=== PATIENT | female | born 1955 | race Two or more races ===

== ENCOUNTER 2022-11-28 18:47 | Inpatient (IN) | payer MEDICARE, OTHER ==
[~2022-11-28] VITALS: Ht 157.5 cm; Wt 61.2 kg
--- NOTE | 2022-11-28 19:36 | NUR ---
DIETETIC TECHNICIAN AT PT'S BEDSIDE
--- NOTE | 2022-11-28 19:56 | NUR ---
COVID ANTIGEN SWAB COLLECTED AND SENT TO LAB
--- NOTE | 2022-11-28 19:56 | NUR ---
URINE COLLECTED AND SENT TO LAB
[2022-11-28 20:06] LABS: BASOPHILS % (AUTO) 0.2 % (0.0-2.0); HEMATOCRIT 39 % (33-45); HEMOGLOBIN 10.8 g/dL (11.5-14.8); LYMPHOCYTES % (AUTO) 10.3 % (20.0-44.0); MEAN CORPUSCULAR HGB CONC 28 g/dl (31.0-36.0); MEAN CORPUSCULAR VOLUME 83 fL (82-100); MONOCYTES # (AUTO) 0.5 K/uL (0.1-1.30); MONOCYTES % (AUTO) 5.2 % (2.0-12.0); NEUTROPHILS # (AUTO) 8.1 K/uL (1.8-8.9); NEUTROPHILS % (AUTO) 84.3 % (43.0-81.0); PLATELET COUNT (AUTO) 609 K/uL (150-450); RED BLOOD CELL COUNT(AUTO) 4.73 MIL/uL (4.0-5.2); WHITE BLOOD COUNT (AUTO) 9.7 K/uL (4.3-11.0)
[2022-11-28 20:12] LABS: ALANINE AMINOTRANSFERASE 6 U/L (12-78); ALBUMIN 2.1 g/dL (3.4-5.0); ALKALINE PHOSPHATASE 101 U/L (46-116); ASPARTATE AMINOTRANSFERASE 14 U/L (15-37); BILIRUBIN,DIRECT 0.2 mg/dL (0.0-0.2); BILIRUBIN,TOTAL 0.6 mg/dL (0.2-1.0); CALCIUM, SERUM 9.1 mg/dL (8.5-10.1); CARBON DIOXIDE 16 mmol/L (21-32); CHLORIDE 98 mmol/L (98-107); GLUCOSE 76 mg/dL (74-106); POTASSIUM 4.7 mmol/L (3.5-5.1); SODIUM SERUM 131 mmol/L (136-145); TOTAL PROTEIN, SERUM 7.6 g/dL (6.4-8.2); UREA NITROGEN, BLOOD 27 mg/dL (7-18)
[2022-11-28 20:20] LABS: ACETAMINOPHEN < 10 ug/ml (10-30); ALCOHOL, BLOOD < 3 mg/dL (0-0)
[2022-11-28 21:31] LABS: BILIRUBIN,URINE 2+ (NEGATIVE); COLOR,URINE YELLOW (YELLOW); LEUKOCYTE ESTERASE ,URINE TRACE (NEGATIVE); NITRITE, URINE NEGATIVE (NEGATIVE); PH,URINE 5.5 (5.0-8.0); PROTEIN,URINE NEGATIVE (NEGATIVE); UGLUCOSE NEGATIVE (NEGATIVE); UROBILINOGEN,URINE 0.2 EU/dL (0.2)
[2022-11-28 21:35] LABS: RBC,URINE 0-2 /HPF (0-2)
[2022-11-28 21:36] LABS: BACTERIA,URINE 2+ /HPF (None Seen)
[2022-11-28 21:54] LABS: LYMPHOCYTES % (MANUAL) 10 % (16-48); MONOCYTES % (MANUAL) 4 % (0-11.0); NEUTROPHILS % (MANUAL) 86 (42-76)
--- NOTE | 2022-11-28 23:25 | NUR ---
DIA JON AT PT'S BEDSIDE FOR EVAL
[2022-11-28] MEDS ORDERED: OLAN10TA3 PO (23:35)
--- NOTE | 2022-11-28 23:35 | NUR ---
REPORT GIVEN TO ANA LAURA CONROY RN FOR [facility].
--- NOTE | 2022-11-28 23:41 | NUR ---
PT TRANSFERRED TO [facility] VIA HOSPITAL PROTOCOL. VSS.
[2022-11-29] MEDS ORDERED: DOCU100C36 PO (00:01)
[2022-11-29] MEDS ORDERED: MULT-754 PO (00:02)
[2022-11-29] MEDS ORDERED: FENT1PAT5 TP (00:04)
[2022-11-29] MEDS ORDERED: NA P133E RC (00:09)
[2022-11-29] MEDS ORDERED: MORP15TA SL (00:16)
[2022-11-29] MEDS ORDERED: ACETAMINOPHEN 325 MG TABLET PO PRN (00:30)
[2022-11-29] MEDS ORDERED: MAG HYDROX/AL HYDROX/SIMETH 30 ML UDC PO PRN (00:30)
[2022-11-29] MEDS ORDERED: MAGNESIUM HYDROXIDE 30 ML UDC PO PRN (00:30)
[2022-11-29] MEDS ORDERED: LORAZEPAM 0.5 MG TABLET PO PRN (00:30)
[2022-11-29] MEDS ORDERED: TEMAZEPAM 7.5 MG CAPSULE PO PRN (00:30)
[2022-11-29] MEDS ORDERED: MORPHINE SULFATE SL (00:40)
[2022-11-29] MEDS ORDERED: NA PHOS,M-B/NA PHOS,DI-BA 1 EA ENEMA RC PRN (01:00)
[2022-11-29] MEDS ORDERED: BLOOD SUGAR DIAGNOSTIC 1 EACH STRIP IN ONE (01:00)
[2022-11-29 02:00] VITALS: BP 115/68
[2022-11-29] MEDS ORDERED: Z GUARD REMEDY 4 OZ OINT TP PRN ×2 (02:00→06:30)
--- NOTE | 2022-11-29 02:03 | NUR ---
RN NOTES : ADMISSION NOTES: ADMITTED THIS 67Y/O FEMALE PATIENT ADMIT FROM [facility] ED/INTIALLY FROM [facility]. ADMITTED TO 5150 HOLD PER HOLD DTO, GD , PT. PT. WAS AGITATED,REFUSING ARE, YELLING, REFUSING FOOD, MEDS, CARE , FAILURE TO THRIVE, UPON FACE TO FACE ASSESSMENT PATIENT IS A&O1X2 ,EASILY AGITATED ,DISORGNIZED, DELUSIONS, DISHELVED,POOR HYGINE,MALORDURS,YELLING,NEEDY DEMENDING UNCOOPERTIVE, NONREDIRECTABLE , LOUD HYPERVERBAL POOR DECISION MAKING,DENIES SI /HI AT THIS TIME, PT. IS POOR HISTORIAN, POOR INSIGHT ,POOR JUDGEMENT , BOTH MD AWARE AND NOTIFIED OF THE ADMISSION, BELONGINGS CONTRABAND WERE DONE , PT. REFUSED SIGNS ADMISSION CONSENT PAPER DUE TO CONFUSED, AND REFUSED BLOOD SUGAR CHECK , ENCOURAGED , PT. RIGHTS DISCUSS BY REFINERY OPERATOR , PROVIDE THE PT. WITH HANDBOOK, AND MEDICATIONS GUIDE, ENVIRONMENTAL SAFETY CHECK DONE, ENCOURAGED PT. VERBALIZED ANY FEELING CONCERN TO STAFF, ORIENT TO UNIT POLICY, NO ACUTE DISTRESS NOTED,VITAL SIGNS WNL ,DENIES ANY PAIN AT THIS TIME,WILL CONTINUE TO MONITOR FOR Q15 SAFETY AND BEHAVIOR.
[2022-11-29] MEDS: CEPHALEXIN MONOHYDRATE 500 MG CAPSULE PO SCH ×3 (06:05→17:42)
--- NOTE | 2022-11-29 06:36 | NUR ---
RN NOTES: REFUSED HYGINE CARE PT. BEHAVIOR UNCOOPERTIVE AGGRESSIVE YELLING SCREAMING, PT. ALLOWED ONLY PERICARE , BUT REFUSED SHOWER BED BATH ORAL HYGINE , ENCOURAGEDX3 RISKS AND BENEFITS EXPLINED ,BUT PT. STRONGLY REFUSED PT. NOTED WITH VERY POOR HYGINE, MALOROURS, GENERALIZED ALL BODY RASHES, REDNESS SKIN DISCOLORATIONS, SKIN DRYNESS , EASILY OOZING FRAGILE SKIN.ENCOURAGED AND OFFERED REPOSTIONS TURNING EVERY 2 HOURS ,BUT PT. REFUSING AND STARTRED YELLING SCREAMING, AGGRESSIVE ARGUMENTATIVE WITH STAFF.
--- NOTE | 2022-11-29 07:22 | NUR ---
RN NOTES: CALLED NOTIFED KAUSHIK MCDOWELL SISTER # [phone], REGARDING ABOUT PT. ADMITTED TO [facility]
[2022-11-29 08:00] VITALS: BP 109/73
[2022-11-29] MEDS: ENSURE ENLIVE CHOC 237 ML CAN PO SCH ×2 (08:26→17:00)
[2022-11-29] MEDS: MULTIVITAMINS,THERAGRAN 1 UDTAB TABLET PO SCH (09:00)
[2022-11-29] MEDS: DOCUSATE SODIUM 100 MG CAPSULE PO SCH (09:00)
[2022-11-29] MEDS: Z GUARD REMEDY 4 OZ OINT TP SCH (12:00)
--- NOTE | 2022-11-29 13:49 | NUR ---
GPS/RN PT REFUSED TO BE REPOSITIONED THOROUGH THE SHIFT. RESISTIVE TO CARE, REFUSING TO EAT AND SELECTIVE WITH MEDS
[2022-11-29] MEDS: OLANZAPINE ZYDIS 5 MG TAB.RAPDIS PO SCH ×2 (13:57→21:02)
[2022-11-29 16:00] VITALS: BP 118/76
--- NOTE | 2022-11-29 20:44 | NUR ---
RN NOTES:PATIENT RESTING IN HER ROOM . NO APPARENT DISTRESS NOTED, PATIENT UNCOOPERATIVE, YELLING, SCREAMING ,CONFUSED FORGETFUL EASILY AGITATED/IRRITABLE, PARANOID ,GUARDER NEEDY ,DEMENDING DISORGNIZED,GUARDED, NEEDS FREQUENTLY REDIRECTIONS, MED COMPLIANT WITH ENCOURAGEMENT ,DENIES SI/HI/AVH AT THIS TIME. SAFETY PRECAUTIONS MAINTAINED. WILL CONTINUE TO MONITOR Q15MIN ROUNDS FOR SAFETY AND BEHAVIOR.
[2022-11-29 21:05] VITALS: BP 112/66
[2022-11-29] MEDS: MORPHINE SULFATE IR 15 MG TABLET PO PRN (22:12)
--- NOTE | 2022-11-29 22:15 | NUR ---
RN NOTES: PT. C/O GENERALIZED BODY PAIN 8/10 ,PRN PO MORPHINE SULFATE 7.5 MG GIVEN PER PT. REQUEST,WILL CONTINUE TO MONITOR. FOR PARTIAL DOSE WITNESS BY ANOTHER NURSE SOM RN .
[2022-11-30] MEDS: CEPHALEXIN MONOHYDRATE 500 MG CAPSULE PO SCH ×4 (00:20→18:08)
--- NOTE | 2022-11-30 06:40 | NUR ---
RN NOTES: REFUSED HYGINE CARE, ORAL CARE, REFUESD REPOSITION PT. BEHAVIOR UNCOOPERTIVE AGGRESSIVE YELLING SCREAMING, PT. ALLOWED ONLY PERICARE , BUT REFUSED SHOWER, BED BATH ORAL HYGINE,REDEPOSITING, THROUGH THE SHIFT , ENCOURAGEDX3 RISKS AND BENEFITS EXPLINED ,BUT PT. STRONGLY REFUSED PT. NOTED WITH VERY POOR HYGINE, MALOROURS, GENERALIZED ALL BODY RASHES, REDNESS SKIN DISCOLORATIONS, SKIN DRYNESS , EASILY OOZING FRAGILE SKIN.ENCOURAGED AND OFFERED REPOSTIONS TURNING EVERY 2 HOURS ,BUT PT. REFUSING AND STARTRED YELLING SCREAMING, AGGRESSIVE ARGUMENTATIVE WITH STAFF , IDONT WANT CLEAN OR REPOSITION .
[2022-11-30 07:42] LABS: CREATININE 1.3 mg/dL (0.6-1.3)
[2022-11-30 08:00] VITALS: BP_SYST 107; BP_SYST 142; BP_DIAS 54; BP_DIAS 71
[2022-11-30] MEDS: ENSURE ENLIVE CHOC 237 ML CAN PO SCH ×2 (08:00→17:00)
[2022-11-30 08:02] LABS: CALCIUM, SERUM 8.8 mg/dL (8.5-10.1); CREATININE 1.3 mg/dL (0.6-1.3); POTASSIUM 4.4 mmol/L (3.5-5.1)
[2022-11-30 08:35] LABS: BASOPHILS % (AUTO) 0.2 % (0.0-2.0); EOSINOPHILS % (AUTO) 0.1 % (0.0-6.0); HEMATOCRIT 28 % (33-45); HEMOGLOBIN 8.7 g/dL (11.5-14.8); LYMPHOCYTES # (AUTO) 1.1 K/uL (0.8-4.8); LYMPHOCYTES % (AUTO) 16.9 % (20.0-44.0); MEAN CORPUSCULAR HGB CONC 31 g/dl (31.0-36.0); MEAN CORPUSCULAR VOLUME 72 fL (82-100); MONOCYTES # (AUTO) 0.5 K/uL (0.1-1.30); MONOCYTES % (AUTO) 6.9 % (2.0-12.0); NEUTROPHILS # (AUTO) 5.2 K/uL (1.8-8.9); NEUTROPHILS % (AUTO) 75.9 % (43.0-81.0); PLATELET COUNT (AUTO) 451 K/uL (150-450); RED BLOOD CELL COUNT(AUTO) 3.87 MIL/uL (4.0-5.2); WHITE BLOOD COUNT (AUTO) 6.8 K/uL (4.3-11.0)
[2022-11-30] MEDS: OLANZAPINE ZYDIS 5 MG TAB.RAPDIS PO SCH ×3 (08:47→21:39)
[2022-11-30] MEDS: DOCUSATE SODIUM 100 MG CAPSULE PO SCH (08:47)
[2022-11-30] MEDS: MULTIVITAMINS,THERAGRAN 1 UDTAB TABLET PO SCH (08:47)
[2022-11-30] MEDS: Z GUARD REMEDY 4 OZ OINT TP SCH (08:47)
[2022-11-30 09:09] LABS: LYMPHOCYTES % (MANUAL) 17 % (16-48); MONOCYTES % (MANUAL) 8 % (0-11.0); NEUTROPHILS % (MANUAL) 75 (42-76)
[2022-11-30] MEDS: FENTANYL PATCH (100 MCG/HR) 100 MCG/HR PATCH.TD72 TD SCH (15:14)
--- NOTE | 2022-11-30 18:52 | NUR ---
NURSE NOTE: PT RECEIVED SHOWER AND ORAL CARE DURING SHIFT. PT REFUSED TO BE REPOSITIONED. ENCOURAGED MULTIPLE TIMES, BUT PT STATED THAT SHE IS IN PAIN WHEN REPOSITIONED. PT ALSO REFUSED TO EAT FOOD. ONLY TOOK ALMOND MILK THROUGHOUT SHIFT. WILL ENDORSE TO PM SHIFT.
[2022-11-30 20:00] VITALS: BP 115/68
[2022-12-01] MEDS: CEPHALEXIN MONOHYDRATE 500 MG CAPSULE PO SCH ×4 (00:03→17:38)
[2022-12-01 08:00] VITALS: BP 100/62
[2022-12-01] MEDS: ENSURE ENLIVE CHOC 237 ML CAN PO SCH ×2 (08:00→17:00)
[2022-12-01] MEDS: DOCUSATE SODIUM 100 MG CAPSULE PO SCH (08:27)
[2022-12-01] MEDS: OLANZAPINE ZYDIS 5 MG TAB.RAPDIS PO SCH ×3 (08:27→21:03)
[2022-12-01] MEDS: Z GUARD REMEDY 4 OZ OINT TP SCH (08:28)
[2022-12-01] MEDS: MULTIVITAMINS,THERAGRAN 1 UDTAB TABLET PO SCH (08:28)
[2022-12-01] MEDS: MORPHINE SULFATE IR 15 MG TABLET PO PRN ×2 (09:38→09:48)
--- NOTE | 2022-12-01 09:50 | NUR ---
NURSE NOTE: PT REQUESTED MORPHINE FOR PAIN. MORPHINE TABLET OFFERED TO PT PER ORDER. PT REFUSED. SAID THAT SHE DOES NOT TAKE A PILL, SHE TAKES MORPHINE LIQUID. ASKED PHARMACY IF WE HAD MORPHINE LIQUID FORM AND WAS TOLD THAT IT IS NOT AVAILABLE. INFORMED PT THAT LIQUID MORPHINE WAS NOT AVAILABLE AND ASKED IF SHE WANTED TO TAB. SHE REFUSED ONCE MORE. MORPHINE WASTED WITH PRIMO MARIO. ALSO OFFERED TO REPOSITION PT, BUT SHE REFUSED, STATING THAT SHE DOESN'T NEED TO BE REPOSITIONED, ONLY MOVE THE BED UP AND DOWN. WILL CONT TO MONITOR.
--- NOTE | 2022-12-01 11:08 | NUR ---
LESTER Initial Discharge Plan: Patient from [facility] [place] [address]; phone: ([phone]). LESTER spoke with Ilana Rojas ([phone]) to see if pt is welcomed back, he will confirm and let this commercial insurance underwriter know. LESTER will contact pt's sister Queta ([phone]) to gather further collateral. LESTER will work with the MD, family, and pt to help coordinate appropriate discharge.
--- NOTE | 2022-12-01 11:08 | NUR ---
LESTER Clinical Note: Pt placed on a 5150 hold for danger to others and GD. Pt was aggressive at her facility. Patient from [place] [address]; ). LESTER spoke with Ilana Rojas ([phone]) to see if pt is welcomed back, he will confirm and let this resume writer know. LESTER will contact pt's sister Queta ([phone]) to gather further collateral.
--- NOTE | 2022-12-01 11:08 | NUR ---
Treatment Plan: Pt refused to sign treatment plan and was suspicious of this signwriter.
--- NOTE | 2022-12-01 12:22 | NUR ---
Facility Contact: SW spoke with Ilana webb ([phone]) who stated that they would want to re-route the pt to a different facility.
--- NOTE | 2022-12-01 14:16 | NUR ---
LESTER Family Contact: LESTER contacted pt's sister Queta ([phone]) and left a detailed voicemail.
[2022-12-01 16:00] VITALS: BP 118/60
--- NOTE | 2022-12-01 20:17 | NUR ---
RN note: Patient refused to be turned and repositioned in bed.Patient prefers to be in prone position .No s/s of acute distress noted. Addendum: 12/02/22 at 0318 by SHELDON HORNER RN Patient prefers to be on supine position .Refused to be turned and repositioned.
[2022-12-01 21:17] VITALS: BP 103/57
[2022-12-02] MEDS: CEPHALEXIN MONOHYDRATE 500 MG CAPSULE PO SCH ×4 (00:23→23:20)
[2022-12-02 08:00] VITALS: BP 110/74
[2022-12-02] MEDS: ENSURE ENLIVE CHOC 237 ML CAN PO SCH ×2 (08:52→17:00)
[2022-12-02] MEDS: OLANZAPINE ZYDIS 5 MG TAB.RAPDIS PO SCH ×4 (09:00→20:08)
[2022-12-02] MEDS: MULTIVITAMINS,THERAGRAN 1 UDTAB TABLET PO SCH ×2 (09:00→09:34)
[2022-12-02] MEDS: DOCUSATE SODIUM 100 MG CAPSULE PO SCH ×2 (09:00→09:34)
[2022-12-02] MEDS: Z GUARD REMEDY 4 OZ OINT TP SCH (09:41)
--- NOTE | 2022-12-02 09:45 | NUR ---
SURVEY OPERATIONS DIRECTOR NOTE PATIENT AGREED TO TAKE MEDICATION, ONCE MEDICATION CUP WAS GIVEN PATIENT LOOKED AT MEDICATION AND STATED SHE DID NOT WANT TO TAKE IT. SHE JUST WANTED THE MORPHINE ONE. INFORMED PATIENT THAT THIS WAS NOT MORPHINE. PATIENT REFUSED THE FOLLOWING MEDS: 0900/THERA TABLETS, 0900/DOCUSATE SODIUM, 0900/OLANZAPINE
[2022-12-02 16:00] VITALS: BP 110/68
[2022-12-02 20:59] VITALS: BP 107/50
[2022-12-03] MEDS: CEPHALEXIN MONOHYDRATE 500 MG CAPSULE PO SCH ×3 (05:12→17:41)
[2022-12-03 08:00] VITALS: BP 107/57
[2022-12-03] MEDS: ENSURE ENLIVE CHOC 237 ML CAN PO SCH ×2 (08:00→17:00)
--- NOTE | 2022-12-03 08:18 | NUR ---
SNF Referral: LESTER sent clinicals to Mary Kate webb ([phone]) for placement at [facility]. LESTER sent H & P, progress notes, and medication list.
[2022-12-03] MEDS: DOCUSATE SODIUM 100 MG CAPSULE PO SCH ×2 (08:33→09:00)
[2022-12-03] MEDS: OLANZAPINE ZYDIS 5 MG TAB.RAPDIS PO SCH ×4 (08:33→21:00)
[2022-12-03] MEDS: MULTIVITAMINS,THERAGRAN 1 UDTAB TABLET PO SCH ×2 (08:33→09:00)
[2022-12-03] MEDS: Z GUARD REMEDY 4 OZ OINT TP SCH (09:51)
[2022-12-03 10:42] LABS: BASOPHILS % (AUTO) 0.3 % (0.0-2.0); HEMATOCRIT 29 % (33-45); HEMOGLOBIN 8.8 g/dL (11.5-14.8); LYMPHOCYTES % (AUTO) 17.4 % (20.0-44.0); MEAN CORPUSCULAR HGB CONC 31 g/dl (31.0-36.0); MEAN CORPUSCULAR VOLUME 73 fL (82-100); MONOCYTES # (AUTO) 0.4 K/uL (0.1-1.30); MONOCYTES % (AUTO) 8.1 % (2.0-12.0); NEUTROPHILS # (AUTO) 4.1 K/uL (1.8-8.9); NEUTROPHILS % (AUTO) 74.2 % (43.0-81.0); PLATELET COUNT (AUTO) 313 K/uL (150-450); WHITE BLOOD COUNT (AUTO) 5.5 K/uL (4.3-11.0)
--- NOTE | 2022-12-03 10:45 | NUR ---
WOUND CARE CONSULT: PT PRESENTS WITH SACRAL DEEP TISSUE INJURY WHICH IS INTACT, PRESENT ON ADMISSION. PT ALSO NOTED TO HAVE AREAS OF SKIN DISCOLORATION, PRESENT ON ADMISSION. RECOMMENDATIONS MADE FOR SKIN PROTECTION AND WOUND CARE. DISCUSSED WITH NURSING STAFF. PT IS REFUSING TO FLOAT HEELS AT THIS TIME. PT INFORMED OF IMPORTANCE OF PREVENTING PRESSURE SORES ON HEELS FROM BED. PT CONTINUED TO REFUSE BUT STATES WILL FLOAT THEM LATER ON PILLOW. MD IN AGREEMENT WITH PLAN OF CARE. CURRENT SHANNEN SCORE IS 15.
[2022-12-03 10:46] LABS: CALCIUM, SERUM 8.3 mg/dL (8.5-10.1); CREATININE 0.8 mg/dL (0.6-1.3); POTASSIUM 4.1 mmol/L (3.5-5.1)
--- NOTE | 2022-12-03 11:00 | NUR ---
RN-CO: DR CAMPOS MADE AWARE THAT PT IS REFUSED HER MEDS TODAY.
--- NOTE | 2022-12-03 12:00 | NUR ---
SNF Referral: LESTER sent clinicals to Judy ([phone]) for placement. SW sent H & P, progress notes, and medication list. Sent for [facility].
--- NOTE | 2022-12-03 12:00 | NUR ---
SNF Referral: LESTER sent clinicals to Judy ([phone]) for placement. SW sent H & P, progress notes, and medication list. Sent for [facility].
[2022-12-03] MEDS: FENTANYL PATCH (100 MCG/HR) 100 MCG/HR PATCH.TD72 TD SCH (15:42)
[2022-12-03 16:00] VITALS: BP 131/68
--- NOTE | 2022-12-03 17:50 | NUR ---
NURSE NOTES: PT REFUSED OLANZAPINE THROUGHOUT SHIFT. WILL ENDORSE TO PM SHIFT. Addendum: 12/03/22 at 1932 by TREMAINE ESTRADA RN PT ALSO REFUSED POSITION CHANGE THROUGHOUT SHIFT. OPTIFOAM DRESSING PLACED ON SACRAL AREA.
--- NOTE | 2022-12-03 21:27 | NUR ---
RN NOTE: MEDICATION REFUSAL PATIENT REFUSED ZYPREXA ZYDIS 5 MG SCHEDULED AT 2100 DESPITE OF RISKS AND BENEFITS EXPLANATIONS, PER PATIENT," I HAVE THE RIGHT TO REFUSE PSYCHIATRIC MEDICATION, I DID NOT TAKE ZYPREXA FOR 2 YEARS AND I FEEL GOOD WITHOUT IT, MY MIND IS CLEAR." PATIENT CONTINUED TO REFUSE ZYPREXA.
[2022-12-03 21:40] VITALS: BP 110/55
[2022-12-04] MEDS: CEPHALEXIN MONOHYDRATE 500 MG CAPSULE PO SCH ×4 (00:04→17:06)
[2022-12-04 08:00] VITALS: BP 110/68
[2022-12-04] MEDS: ENSURE ENLIVE CHOC 237 ML CAN PO SCH ×2 (08:00→17:06)
--- NOTE | 2022-12-04 08:55 | NUR ---
Court Notification: LESTER contacted pt's sister Queta ([phone]) and left a voicemail of [phone] hearing.
[2022-12-04] MEDS: OLANZAPINE ZYDIS 5 MG TAB.RAPDIS PO SCH ×5 (09:00→21:04)
[2022-12-04] MEDS: Z GUARD REMEDY 4 OZ OINT TP SCH (09:00)
[2022-12-04] MEDS: DOCUSATE SODIUM 100 MG CAPSULE PO SCH (09:00)
[2022-12-04] MEDS: MULTIVITAMINS,THERAGRAN 1 UDTAB TABLET PO SCH (09:00)
--- NOTE | 2022-12-04 12:25 | NUR ---
Court Hearing: Patient's court hearing for 8480 was today and it was upheld for GD.
--- NOTE | 2022-12-04 13:52 | NUR ---
SNF Contact: SW spoke with Judy ([phone]) from [facility] who stated pt is accepted.
[2022-12-04 16:00] VITALS: BP 127/78
--- NOTE | 2022-12-04 20:12 | NUR ---
GPS RN NOTES RECEIVED LAYING ON BED A/O X2,HYPERVERBAL WHEN ENGAGED,UNABLE TO AMBULATE,CONTRACTED,INCONTINENT OF B/B.REFUSED BODY ASSESSMENT.FALL RISK PRECAUTION OBSERVED,BED ON LOWEST POSITION AND LOCKED, DNR STATUS,POSSIBLE DISCHARGE TOMORROW BACK TO SNF.WILL CONTINUE TO MONITOR BEHAVIOR.
[2022-12-04 21:38] VITALS: BP 111/58
[2022-12-05] MEDS: CEPHALEXIN MONOHYDRATE 500 MG CAPSULE PO SCH ×3 (00:07→12:11)
--- NOTE | 2022-12-05 05:00 | NUR ---
GPS RN NOTES POSSIBLE D/C BACK TO SNF TODAY,RE TEST FOR COVID 19 DONE,SENT TO LAB
[2022-12-05 08:00] VITALS: BP 103/52
[2022-12-05] MEDS: ENSURE ENLIVE CHOC 237 ML CAN PO SCH (08:00)
--- NOTE | 2022-12-05 08:06 | NUR ---
SW Discharge Note: [facility] located at [address] [place] [address]; ([phone]). Please arrange ambulance at 1PM. [employer] spoke with [employer] [employer] [facility] ([phone]) who stated patient will be accepted at facility today. Patient is alert and oriented x2. Patient denies any suicidal or homicidal ideations. Patients sister Queta ([phone]) who is aware and agreeable of dc. Patient will continue to follow-up with ([place]iat[place]) [place] [address] [address]; ([phone]) and (Vice President Sales And Marketing) Dr. Mccarthy [address] [place] [address]; ([phone]). Patient presents with euthymic mood and congruent affect.
[2022-12-05] MEDS: OLANZAPINE ZYDIS 5 MG TAB.RAPDIS PO SCH (09:00)
[2022-12-05] MEDS: MULTIVITAMINS,THERAGRAN 1 UDTAB TABLET PO SCH (09:00)
[2022-12-05] MEDS: DOCUSATE SODIUM 100 MG CAPSULE PO SCH (09:00)
[2022-12-05] MEDS: Z GUARD REMEDY 4 OZ OINT TP SCH (09:14)
--- NOTE | 2022-12-05 09:17 | NUR ---
Dr. Louise gave an order to D/C hold and D/C to [facility] and to follow up with the psych and medical doctors. Psyhiatrist ordered to d/c the psychotropic and to continue prn on the facility.
--- NOTE | 2022-12-05 09:56 | NUR ---
LESTER Family Contact: SW received a call from pt's sister Enedina ([phone]) and stated that her phone was not working. SW notified that [facility] is unable to care for her and she will be discharged to [facility]. She was agreeable of this.
--- NOTE | 2022-12-05 13:48 | NUR ---
RN-NOTES PATIENT HAD A DISCHARGE ORDER FROM DR. CAMPOS ( PSYCHIATRIST) PA [facility] MEDICALLY CLEARED PATIENT FOR DISCHARGE.REPORT WAS GIVEN TO BRIT ( ASSOCIATE PROFESSOR OF GEOGRAPHY). PATIENT DID NOT VERBALIZE SI/HI,DENIES VISUAL/AUDITORY HALLUCINATIONS AT THE TIME OF DISCHARGE. PATIENT HAS NO BELONGING. PATIENT'S SISTER NAY AWARE OF THE DISCHARGE.
== END 2022-12-05 13:45 | DRG 885 ==
LOC: ER 19:01 → GPS 23:33
PROVIDERS: ADMIT Psychiatry & Neurology Psychiatry; ATTEND Nurse Practitioner Acute Care
DX: F25.9 Schizoaffective disorder, unspecified (principal); F50.9 Eating disorder, unspecified; N18.9 Chronic kidney disease, unspecified; E87.1 Hypo-osmolality and hyponatremia; N39.0 Urinary tract infection, site not specified; E44.0 Moderate protein-calorie malnutrition; Z20.822 Contact with and (suspected) exposure to COVID-19; Z66 Do not resuscitate; G89.4 Chronic pain syndrome; J44.9 Chronic obstructive pulmonary disease, unspecified; Z91.199 Patient's noncompliance with other medical treatment and regimen due to unspecified reason; Z88.3 Allergy status to other anti-infective agents; Z79.899 Other long term (current) drug therapy; Z88.8 Allergy status to other drugs, medicaments and biological substances; Z73.6 Limitation of activities due to disability; B96.89 Other specified bacterial agents as the cause of diseases classified elsewhere; E86.1 Hypovolemia; R79.89 Other specified abnormal findings of blood chemistry; L30.9 Dermatitis, unspecified; E88.09 Other disorders of plasma-protein metabolism, not elsewhere classified; F29 Unspecified psychosis not due to a substance or known physiological condition
CPT/HCPCS: 36415; 80048-TC; 80061-TC; 80076-TC; 81001; 82565-TC; 85025-TC; 87081-TC; 87086-TC; C9803; G0480